=== PATIENT | female | born 2000 | race Caucasian/White ===

== ENCOUNTER 2018-07-24 15:50 | Outpatient (CLI) | payer OTHER | END 2018-07-24 17:52 | disposition home or self-care (01) | LOC: M LDO 15:50 | DX: O47.03 False labor before 37 completed weeks of gestation, third trimester (principal); Z3A.34 34 weeks gestation of pregnancy | CPT/HCPCS: 59025 ==

== ENCOUNTER 2018-09-09 15:27 | Outpatient (CLI) | payer OTHER | END 2018-09-09 17:12 | disposition home or self-care (01) | LOC: M LDO 15:27 | DX: O47.1 False labor at or after 37 completed weeks of gestation (principal); Z3A.40 40 weeks gestation of pregnancy | CPT/HCPCS: 59025 ==

== ENCOUNTER 2018-09-12 11:48 | Inpatient (IN) | payer OTHER ==
[2018-09-12] MEDS ORDERED: LR 1,000 ML IV (12:49)
[2018-09-12 13:01] LABS: HEMOGLOBIN 11.5 g/dl (12.0-15.5); MEAN CORPUSCULAR HEMOGLOBIN 30.7 pg (27.0-33.0); MEAN CORPUSCULAR HGB CONC 33.8 g/dl (32.0-36.5); MEAN CORPUSCULAR VOLUME 90.7 fl (80.0-96.0); PLATELET COUNT, AUTOMATED 137 10^3/uL (150-450); RED BLOOD COUNT 3.75 10^6/uL (4.00-5.40); RED CELL DISTRIBUTION WIDTH 14.8 % (11.5-14.5)
[2018-09-12] MEDS ORDERED: OXYTOCIN 30 UNITS IN 0.9% NaCl 500ML IV BAG (J2590) As Ordered (13:22)
[2018-09-12] MEDS: OXYTOCIN DRIP 30 UNITS in APPROPRIATE DILUENT 1 EA IV (13:33)
[2018-09-12] MEDS: LR 1,000 ML IV (13:34)
[2018-09-12] MEDS ORDERED: FENTANYL 2MCG/ML ROPIVACAINE 0.2% IN 0.9% NACL 200ML IVBAG As Ordered (16:40)
[2018-09-12] MEDS ORDERED: ePHEDrine SULFATE 25 MG/5 ML(5MG/ML) SYRINGE IV (18:15)
[2018-09-12] MEDS ORDERED: ONDANSETRON 4MG/2ML VIAL (J2405) IV (18:15)
[2018-09-12] MEDS ORDERED: EPIDURAL/PCA KEYS XX (18:15)
[2018-09-12] MEDS ORDERED: FENTANYL/ROPIVACAINE/NACL BAG 200 ML EPIDURAL (18:15)
[2018-09-12] MEDS ORDERED: diphenhydrAMINE INJ 50MG/ML VIAL (J1200) IV (18:15)
[2018-09-12] MEDS ORDERED: EPIDURAL COMMENT XX (18:15)
[2018-09-12] MEDS ORDERED: REFRIGERATOR IV KEYS XX (18:15)
[2018-09-12] MEDS ORDERED: LACTATED RINGER'S 1000 ML IV (18:15)
[2018-09-12] MEDS ORDERED: NALOXONE INJ 0.4 MG/1 ML VIAL (J2310) IV (18:15)
[2018-09-13] MEDS ORDERED: RHOGAM 300 MCG (1500 IU) INJ (J2790) IM (01:00)
[2018-09-13] MEDS ORDERED: MEASLES,MUMPS,RUBELLA VACCINE INJ (MMR-II) (90707) SC (01:00)
[2018-09-13] MEDS: DOCUSATE SODIUM 100 MG CAP PO ×3 (07:00→19:42)
[2018-09-13] MEDS: DIBUCAINE 1% OINTMENT 30GM TOP (07:00)
[2018-09-13] MEDS: LR 1,000 ML IV ×3 (07:00→13:18)
[2018-09-13] MEDS: LACTATED RINGER'S 1000 ML IV (07:01)
[2018-09-13] MEDS: METHYLERGONOVINE MALEATE 0.2 MG/ML VIAL (J2210) IM (07:01)
[2018-09-13] MEDS: OXYTOCIN DRIP 30 UNITS in APPROPRIATE DILUENT 1 EA IV (07:01)
[2018-09-13] MEDS: IBUPROFEN 800 MG TAB PO ×2 (07:37→19:42)
[2018-09-13] MEDS: ACETAMINOPHEN 500 MG TAB PO (09:24)
[2018-09-13] MEDS: PRENATAL VITAMINS CHEWABLE TABLET PO (09:24)
[2018-09-14] MEDS: IBUPROFEN 800 MG TAB PO ×2 (05:09→18:32)
[2018-09-14] MEDS: PRENATAL VITAMINS CHEWABLE TABLET PO (07:40)
[2018-09-14] MEDS: DOCUSATE SODIUM 100 MG CAP PO ×2 (07:40→18:31)
[2018-09-14] MEDS: ACETAMINOPHEN 500 MG TAB PO (07:42)
[2018-09-15] MEDS: IBUPROFEN 800 MG TAB PO (03:32)
[2018-09-15] MEDS: DOCUSATE SODIUM 100 MG CAP PO (08:58)
[2018-09-15] MEDS: PRENATAL VITAMINS CHEWABLE TABLET PO (08:58)
== END 2018-09-15 11:55 | disposition home or self-care (01) | DRG 807 ==
LOC: M LDI 11:48 → M OBS 09-13 04:09
PROVIDERS: Obstetrics & Gynecology
PROC: 10E0XZZ Delivery of Products of Conception, External Approach (ICD-10-PCS; principal; 2018-09-12)
PROC: 10907ZC Drainage of Amniotic Fluid, Therapeutic from Products of Conception, Via Natural or Artificial Opening (ICD-10-PCS; 2018-09-12)
PROC: 3E033VJ Introduction of Other Hormone into Peripheral Vein, Percutaneous Approach (ICD-10-PCS; 2018-09-12)
DX: O36.63X0 Maternal care for excessive fetal growth, third trimester, not applicable or unspecified (principal); Z37.0 Single live birth; Z3A.41 41 weeks gestation of pregnancy; O48.0 Post-term pregnancy; O70.0 First degree perineal laceration during delivery; O77.0 Labor and delivery complicated by meconium in amniotic fluid; O32.8XX0 Maternal care for other malpresentation of fetus, not applicable or unspecified

== ENCOUNTER → 2019-04-01 | Outpatient (REF) | payer OTHER ==
[~2019-04-01] MED LIST: APAP500T10 PO; COLA100C5 PO; IBUP1TAB7 PO; MAGN250T7 PO; OXYC1TAB23 PO; PRENTAB9 PO; UNIS25TA3 PO
[2019-04-02 12:17] LABS: FREE T4 0.87 NG/DL (0.78-1.33); HCG, SERUM QUANTITATIVE < 1.0 MIU/ML
== END ==
LOC: M SFHCCLAY 14:59
PROVIDERS: ATTEND Nurse Practitioner Family
DX: N92.6 Irregular menstruation, unspecified (principal)
CPT/HCPCS: 84439; 84443; 84702; G0463